=== PATIENT | male | born 1995 | race Caucasian/White ===

== ENCOUNTER 2017-11-19 22:59 | Emergency (ER) | payer BC ==
[2017-11-19 23:07] VITALS: BP 118/73; PULSE 98; RESP 20; TEMP 97.2
--- NOTE | 2017-11-20 00:03 | XR ---
EXAMINATION TYPE: XR knee 4V RT DATE OF EXAM: 11/19/2017 COMPARISON: NONE HISTORY: Knee pain TECHNIQUE: 4 views FINDINGS: I see no fracture nor dislocation. Joint spaces are fairly normal. There is knee joint effu terra. IMPRESSION: Joint effusion. No fracture.
--- NOTE | 2017-11-20 00:11 | ED ---
Lower Extremity Injury HPI - General Chief Complaint: Extremity Injury, Lower Stated Complaint: fall, leg pain Time Seen by Provider: 11/19/17 23:16 Source: patient Mode of arrival: ambulatory Limitations: no limitations - History of Present Illness Initial Comments: This patient is 22-year-old man who presents to be evaluated after right knee injury this evening. The patient states that he was trying to get downstairs home quickly, then rather than fall he jumped down about the last 6 stairs, landing on his right leg and felt like his right knee had an injury consisting of hyper extension and internal rotation. He has experienced swelling, pain, and decreased range of motion. The patient states that he attempted to manage things at home by taking ibuprofen, resting his leg, elevating it and using ice and compression. He states that when the symptoms weren't not improving and in fact getting a bit worse she came here to be seen. The pain is moderate, better with ibuprofen. It is constant and aching. It is worse she tries to bear weight on his leg or if he tries to fully extend the right knee or flex it. No previous injury or surgery. No loss of sensation or strength. MD Complaint: knee injury Onset/Timin -: hour(s) Injury: Knee: Right Type of Injury: hyperextension Place: home Improves With: immobilization, rest Worsens With: weight bearing, movement Context: other Associated Symptoms: swelling, able to partially bear weight Treatments Prior to Arrival: NSAIDS - Related Data Previous Rx's Medication Instructions Recorded Ibuprofen [Motrin] 600 mg PO Q8HR PRN #20 tab 11/20/17 Allergies Allergy/AdvReac Type Severity Reaction Status Date / Time azithromycin [From Zithromax] Allergy Rash/Hives Verified 11/19/17 23:07 Review of Systems ROS Statement: Those systems with pertinent positive or pertinent negative responses have been documented in the HPI. ROS Other: All systems not noted in ROS Statement are negative. Constitutional: Denies: fever, chills, weakness Musculoskeletal: Reports: as per HPI, joint swelling, arthralgia. Denies: myalgia Neurological: Denies: weakness, numbness, paresthesias Past Medical History Past Medical History: No Reported History History of Any Multi-Drug Resistant Organisms: None Reported Past Surgical History: Tonsillectomy Past Psychological History: No Psychological Hx Reported Smoking Status: Never smoker Past Alcohol Use History: None Reported Past Drug Use History: None Reported General Exam Limitations: no limitations Cardiovascular Exam: Present: other (Dorsalis pedis pulses intact. Normal capillary refill) Right Upper Leg exam: Present: normal inspection, full ROM. Absent: tenderness, swelling Knee exam: Present: tenderness, swelling, effusion. Absent: abrasion, laceration, ecchymosis, deformity, crepitus, dislocation, erythema, full knee extension Lower Leg exam: Present: normal inspection, full ROM. Absent: tenderness, swelling Ankle exam: Present: normal inspection, full ROM. Absent: tenderness, swelling Foot/Toe exam: Present: normal inspection, full ROM. Absent: tenderness, swelling Neurovascular tendon exam: Present: no vascular compromise. Absent: pulse deficit, motor deficit, sensory deficit Neurological exam: Absent: motor sensory deficit Skin exam: Present: warm, dry, intact, normal color. Absent: rash Course Vital Signs 11/19/17 23:02 Temperature 97.2 F L Pulse Rate 98 Respiratory 20 Rate Blood Pressure 118/73 O2 Sat by Pulse 100 Oximetry Disposition Clinical Impression: Right knee sprain Disposition: HOME SELF-CARE Condition: Good Instructions: Knee Sprain (ED) Prescriptions: Ibuprofen [Motrin] 600 mg PO Q8HR PRN #20 tab PRN Reason: Pain Is patient prescribed a controlled substance at d/c from ED?: No Referrals: Teodoro Quintero MD [Primary Care Provider] - 1-2 days
== END 2017-11-20 00:41 | disposition home or self-care (01) ==
LOC: EC 22:59
DX: S83.91XA Sprain of unspecified site of right knee, initial encounter (principal); M25.461 Effusion, right knee; Z88.1 Allergy status to other antibiotic agents; X50.1XXA Overexertion from prolonged static or awkward postures, initial encounter; Y93.01 Activity, walking, marching and hiking; Y92.69 Other specified industrial and construction area as the place of occurrence of the external cause
CPT/HCPCS: 73564; 99283; L1830

== ENCOUNTER → 2017-12-15 | Outpatient (CLI) | payer BC ==
--- NOTE | 2017-12-15 10:52 | MR ---
EXAMINATION TYPE: MR knee RT wo con DATE OF EXAM: 12/15/2017 COMPARISON: NONE HISTORY: Right knee pain TECHNIQUE: Multiplanar, multisequence imaging of the right knee is performed without IV contrast. FINDINGS: There is a complete tear of the anterior cruciate ligament. Small area of marrow edema invo lving the posterior lateral tibial epiphysis noted. Femoral and tibial cartilage is preserved. Does appear to be grade III chondromalacia involving the p atellar cartilage. This is noted focally within the central aspect of the cartilage. Medial collateral and lateral collateral ligaments are intact. There is grade 3 abnormal signal invol ving the posterior horn of the medial meniscus compatible with meniscal tear. Patellar and quadriceps tendons are intact. No sizable Junior's cyst. There is a small amount of fluid along the musculature posterior and mediall y which is nonspecific. Retinaculum are intact. No sizable suprapatellar bursal fluid collection IMPRESSION: 1. Complete ACL tear 2. Linear posterior horn medial meniscal tear. 3. 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
== END | disposition home or self-care (01) ==
LOC: RADMRIMAIN 10:06
PROVIDERS: ATTEND Orthopaedic Surgery
DX: S83.511A Sprain of anterior cruciate ligament of right knee, initial encounter (principal); S83.241A Other tear of medial meniscus, current injury, right knee, initial encounter; M22.41 Chondromalacia patellae, right knee

== ENCOUNTER → 2018-02-14 | Outpatient (CLI) | payer BC ==
[2018-02-14 15:12] LABS: Basophils % (A) 1 %; Eosinophils # (A) 0.1 k/uL (0-0.7); Eosinophils % (A) 2 %; HCT 49.6 % (39.0-53.0); Lymphocytes # (A) 1.7 k/uL (1.0-4.8); Lymphocytes % (A) 26 %; MCH 31.1 pg (25.0-35.0); MCHC 34.2 g/dL (31.0-37.0); MCV 90.9 fL (80.0-100.0); Mean Platelet Volume 7.3; Monocytes # (A) 0.4 k/uL (0-1.0); Monocytes % (A) 6 %; Neutrophils # (A) 4.3 k/uL (1.3-7.7); Neutrophils % (A) 64 %; Platelet Count 204 k/uL (150-450); RBC 5.45 m/uL (4.30-5.90); RDW 12.5 % (11.5-15.5); WBC 6.7 k/uL (3.8-10.6)
== END | disposition home or self-care (01) ==
LOC: LABWHC1 14:19
PROVIDERS: ATTEND Orthopaedic Surgery
DX: Z01.812 Encounter for preprocedural laboratory examination (principal); M23.91 Unspecified internal derangement of right knee
CPT/HCPCS: 36415; 85025

== ENCOUNTER 2018-02-19 08:24 | Day surgery (SDC) | payer BC ==
[2018-02-16 11:45] VITALS: BMI 27.1
--- NOTE | 2018-02-18 10:59 | HP ---
HISTORY AND PHYSICAL REASON FOR ADMISSION: Surgery is scheduled for 02/19/2018. Yobani Steven is a 22-year-old patient seen with right knee anterior cruciate ligament tear and medial meniscal tear. We discussed options for treatment. He elected to proceed with arthroscopy including allograft ACL reconstruction. Consent regarding the procedure was obtained. PAST MEDICAL HISTORY: Asthma. PAST SURGICAL HISTORY: Noncontributory. DAILY MEDICATIONS: 1. Ibuprofen. 2. Prilosec. ALLERGIES: ZITHROMAX. SOCIAL HISTORY: Patient denies tobacco use. PHYSICAL EXAMINATION: Evaluation of the right knee range of motion -2/3 to 120 degrees. Mild effusion. Tenderness medial joint line. Positive medial Julio's. +2 Arpita and no end point. Collateral ligaments stable. Distal neurovascular exam intact. RADIOGRAPHS: No osseous abnormality. MRI right knee revealed anterior cruciate ligament tear and medial meniscal tear. IMPRESSION: Internal derangement, right knee with medial meniscal tear and anterior cruciate ligament tear. PLAN: Right knee arthroscopy with allograft ACL reconstruction, partial meniscectomy and debridement. Surgery 02/19/2018. MMODL / IJN: [id number] /
[~2018-02-19 08:24] MED LIST: DEXAMETHASONE SOD PHOSPHATE 10 MG/ML 1 ML VIAL IV ONE; LACTATED RINGERS 1,000 ML IV SCH; MIDAZOLAM 2 MG/2 ML VIAL IV PRN; ONDANSETRON 4 MG/2 ML VIAL IVP ONE; SCOPOLAMINE 1.5MG/72HR PATCH TRANSDERM ONE; ceFAZolin IN SWFI 2 GM/20 ML SYRINGE IVP ONE; fentaNYL (PF) 50 MCG/ML 2 ML AMP IV PRN
[2018-02-19 08:55] VITALS: RESP 16
[2018-02-19] MEDS ORDERED: MIDAZOLAM 2 MG/2 ML VIAL ONE (10:25)
[2018-02-19] MEDS ORDERED: LIDOCAINE 1% INJ 10MG/ML (20 ML MDV) ONE (10:25)
[2018-02-19] MEDS ORDERED: fentaNYL (PF) 50 MCG/ML 2 ML AMP ONE (10:25)
[2018-02-19] MEDS ORDERED: SUCCINYLCHOLINE CHLORIDE VIAL 200 MG/10 ML VIAL IV ONE (10:25)
[2018-02-19] MEDS ORDERED: PROPOFOL 10 MG/ML 20 ML VIAL IV ONE (10:25)
[2018-02-19] MEDS ORDERED: LACTATED RINGERS 1,000 ML IV ONE (12:04)
[2018-02-19] MEDS ORDERED: ROPIVACAINE 5 MG/ML 30 ML VIAL MISCELLANE ONE (12:53)
[2018-02-19 13:22] VITALS: TEMP 97.4
--- NOTE | 2018-02-19 13:30 | P.OP ---
Date of Procedure: 02/19/18 Preoperative Diagnosis: Internal derangement right knee Postoperative Diagnosis: 1. ACL tear right knee 2. Medial and lateral meniscal tears right knee 3. Grade 4 chondromalacia medial femoral condyle right knee 4. Reactive synovitis medial, lateral and suprapatellar compartments right knee Procedure(s) Performed: 1. Arthroscopic allograft ACL reconstruction right knee 2. Arthroscopic partial medial and lateral meniscectomy right knee 3. Arthroscopic microfracture medial femoral condyle right knee 4. Arthroscopic partial synovectomy medial, lateral and suprapatellar compartments right knee Implants: 2[employer] Endobutton's Anesthesia: CHARLETTEA, local Surgeon: Zeke Pathak Car Sales Associate #1: Claus Powell Estimated Blood Loss (ml): 40 Pathology: none sent Condition: stable Disposition: PACU Indications for Procedure: 22-year-old patient seen with right knee pain and instability consistent with ACL tear and meniscal tears. After treatment options were discussed he elected to proceed with arthroscopy to include allograft ACL reconstruction. Operative Findings: see description of procedure Description of Procedure: Patient was taken to the operative suite. Patient underwent a general anesthetic by the department of anesthesia. Patient was given preoperative antibiotics. The right lower extremity was placed in a well-padded arthroscopic leg abraham. The right leg was prepped and draped in the normal sterile orthopedic fashion. A lateral parapatellar and suprapatellar incision was made. Trochars were inserted. Arthroscopy was initiated. Suprapatellar pouch revealed diffuse thick reactive synovitis. The patellofemoral joint appeared to articulate congruently. The scope was guided into the medial gutter. No loose bodies or plica was identified . The scope was then guided into the medial compartment. A medial parapatellar incision was made. Trocar inserted followed by probe. There was a radial tear posterior horn medial meniscus. There was a area of grade 4 chondromalacia with osteochondral defect posterior aspect weightbearing surface medial femoral condyle with exposed bone. It measured approximately 1 cm diameter. There was thick reactive synovitis anteriorly. Scope and probe were then guided into the intercondylar notch. There was no obvious complete anterior cruciate ligament tear. At this point the allograft was opened and Jono HAN began preparing the allograft for implant. The scope was guided back into the medial compartment. I performed a partial medial meniscectomy getting down to stable tissue. I did a light chondroplasty along the edges of that osteochondral defect and I performed a microfracture to the medial femoral condyle in the central area of the defect penetrating the bone and noting some bleeding at the microfracture site once it was completed. I now performed a partial synovectomy decompressing the reactive synovitis.. The scope and probe were then guided into lateral compartment. There was a white sewn tear posterior horn lateral meniscus extending into the mid body. There was reactive synovitis anteriorly. There were some grade 1/2 chondral malacia changes with no osteochondral tears. I performed a partial lateral meniscectomy down to stable tissue. I performed a partial synovectomy decompressing the thick reactive synovitis. We had good decompression of reactive synovitis. The residual meniscus was stable. The scope was in guided back into the suprapatellar compartment. I introduced a motorized shaver into the super compartment debriding out piecemeal fragments of meniscus. I performed a partial synovectomy decompressing the thick reactive synovitis in the suprapatellar compartment. I now guided the scope back into the intercondylar notch. I debrided the remnant ACL. I performed a light notchplasty. The PCL was intact. I now introduced my femoral tunnel guide. The knee was hyperflexed with the camera position as I held the guide and Jono HAN drilled the guidewire. We now created a femoral tunnel using a low-profile reamer. A loop stitch was then placed in position. I then turned my attention to the tibial side introduce the tibial tunnel guide. A 6 incision was made along the proximal tibia measuring approximate 3 cm. I Layne guided position on Jono HAN introduced a guidewire and drilled through. We then use a full cutter and created our tibial socket. The graft was now brought to the operative field and shuttled through into the femoral tunnel. We flipped the button and then introduced our graft into the tunnel. We now show sutures through our tibial socket and introduced the graft there. We now took ligament. Attention. We'll hold into full extension we now tied our Endobutton along the tibial side noted good fixation there. We now range the knee and then tensioned our femoral side one more time getting good tension to the graft. We had good positioning of our graft couldn't. We'll stability was noted of the knee. Residual suture limbs were clipped. I took more look on the entire knee, no residual debris. Instruments were now removed from the joint. The joint was infiltrated with .25 % Marcaine. The proximal medial tibial incision and all portal sites were now repair with nylon suture. Sterile dressings were applied. The patient was placed into a TOM hose. A soft knee immobilizer was now placed in position. No tourniquet was utilized. Jono HAN assisted with this complex procedure. The patient was awakened, transferred to a bed and taken to recovery stable satisfactory condition.
[2018-02-19] MEDS: HYDROmorphone 1 MG/ML 1 ML SYRINGE IVP ONE ×2 (13:46→13:53)
[2018-02-19] MEDS ORDERED: HYDROcodone/APAP 7.5-325MG 1 EACH TAB PO ONE (14:30)
[2018-02-19 14:53] VITALS: PULSE 72
[2018-02-19 15:26] VITALS: BP 147/83
== END 2018-02-19 15:56 | disposition home or self-care (01) ==
LOC: OR 08:24
PROVIDERS: ATTEND Orthopaedic Surgery
DX: S83.511A Sprain of anterior cruciate ligament of right knee, initial encounter (principal); S83.241A Other tear of medial meniscus, current injury, right knee, initial encounter; S83.281A Other tear of lateral meniscus, current injury, right knee, initial encounter; X58.XXXA Exposure to other specified factors, initial encounter; M94.261 Chondromalacia, right knee; M65.861 Other synovitis and tenosynovitis, right lower leg; J45.909 Unspecified asthma, uncomplicated; Z79.1 Long term (current) use of non-steroidal anti-inflammatories (NSAID); Z79.899 Other long term (current) drug therapy; Z88.1 Allergy status to other antibiotic agents
CPT/HCPCS: 29880; 29888; 29879; C1713 ×2; J2250; J0330; J1100; J2405; J2001; J3010; J1170; J2795; J2704; J0690

== ENCOUNTER → 2024-12-12 | Outpatient (CLI) | payer BC ==
[2024-12-12 19:21] LABS: Basophils # (A) 0.04 X 10*3/uL (0.00-0.10); Basophils % (A) 0.6 %; Eosinophils # (A) 0.09 X 10*3/uL (0.04-0.35); Eosinophils % (A) 1.3 %; HCT 48.6 % (39.6-50.0); HGB 16.9 g/dL (13.0-17.0); Lymphocytes # (A) 1.69 X 10*3/uL (0.90-5.00); Lymphocytes % (A) 25.3 %; MCH 30.2 pg (27.0-32.0); MCHC 34.8 g/dL (32.0-37.0); MCV 86.8 FL (80.0-97.0); Mean Platelet Volume 10.7 FL (9.5-12.2); Monocytes # (A) 0.43 X 10*3/uL (0.20-1.00); Monocytes % (A) 6.4 %; NRBC Per 100 WBC 0 X 10*3/uL (0.00-0.01); Neutrophils # (A) 4.42 X 10*3/uL (1.80-7.70); Neutrophils % (A) 66.1 %; Platelet Count 217 X 10*3/uL (140-440); RDW 12.1 % (11.5-14.5); WBC 6.69 X 10*3/uL (4.50-10.00)
[2024-12-12 21:07] LABS: Anti-DNA, DS unit <1.0 IU/mL; DNA Double-Stranded Negative (Negative)
[2024-12-12 21:44] LABS: ALT 23 U/L (10-49); AST 27 U/L (14-35); Albumin 4.5 g/dL (3.8-4.9); Albumin/Globulin Ratio 2.37 Ratio (1.60-3.17); Alkaline Phosphatase 71 U/L (41-126); BUN/Creat Ratio 14.73 Ratio (12.00-20.00); Blood Urea Nitrogen 16.2 mg/dL (9.0-27.0); Calcium 9.1 mg/dL (8.7-10.3); Carbon Dioxide 20.6 mmol/L (21.6-31.8); Chloride 104 mmol/L (96-109); Globulin 1.9 g/dL (1.6-3.3); Glucose 92 mg/dL (70-110); Potassium 4.5 mmol/L (3.5-5.5); Sodium 142 mmol/L (135-145); Total Bilirubin 0.6 mg/dL (0.3-1.2); Total Protein 6.4 g/dL (6.2-8.2)
[2024-12-13 13:36] LABS: APTT 36 Sec(s) (<43); Dilute Russell Viper Venom 33 Sec(s) (<44)
[2024-12-13 18:55] LABS: ANA Pattern Speckled
== END | disposition home or self-care (01) ==
LOC: LABWHC1 11:51
PROVIDERS: ATTEND Family Medicine
DX: Z00.00 Encounter for general adult medical examination without abnormal findings (principal); Z79.899 Other long term (current) drug therapy
CPT/HCPCS: 36415; 80053; 82785; 83036; 84443; 85025; 85613; 85730; 86038; 86039; 86225